=== PATIENT | female | born 1990 | race African-American/Black ===

== ENCOUNTER 2017-01-24 18:30 | Outpatient (CLI) | payer MEDICAID, SELFPAY ==
[2017-01-24 18:41] VITALS: BMI 28.3
[2017-01-24 18:58] LABS: Red Blood Cells-Urine 0 SEEN /hpf (0-5); White Blood Cells 0 SEEN /hpf (0-5)
[2017-01-24 19:09] LABS: Color, Urine Yellow (Yellow); Glucose, Dipstick Normal (Normal); Ketone-Dipstick 5 mg/dl (Negative); Leukocyte Esterase-Dipstick 25 /ul (Negative); Nitrite-Dipstick Negative (Negative); Occult Blood-Urine Negative /ul (Negative); Protein-Dipstick 15 mg/dl (Negative); Specific Gravity, Urine 1.015 (1.002-1.030); Urine Bilirubin Dipstick Negative (Negative); Urine Clarity Clear (Clear); Urine Urobilinogen 1 mg/dl (Normal)
[2017-01-24 19:17] LABS: Squamous Epithelial Cells - UA 0-5 SEEN /hpf (5-10)
[2017-01-24 19:18] LABS: Bacteria 1+ /hpf (None Seen); Mucous, Urine 1+ /hpf (<or=2+)
--- NOTE | 2017-01-25 09:58 | OB.TRI.NOTE ---
History of Present Illness - History of Present Illness Reason For Visit: VAG PAIN - Allergies Allergies/Adverse Reactions: Allergies No Known Allergies Allergy (Verified 01/24/17 18:59) - Pertinent Past Medical History Pertinent Past Medical History: 35+ week IUP presents with vaginal pain. Denies contractions. No other issues. Followed by MD in [place] but has not seen him since October. Physical Exam Abdomen: Appropriate for Gestational Age NST - FHR Rate Baby A NST Reactive:: Yes Impression/Plan 35+ week IUP with false labor. Cervix non-threatening for labor. Reactive NST. UA OK--to increase hydration. Strongly urged to keep appt with OB on Friday as planned.
--- NOTE | 2017-01-25 10:02 | OB.TRI.HP_ITS ---
History of Present Illness - History of Present Illness Reason For Visit: VAG PAIN - Allergies Allergies/Adverse Reactions: Allergies No Known Allergies Allergy (Verified 01/24/17 18:59) - Pertinent Past Medical History Pertinent Past Medical History: 35+ week IUP presents with vaginal pain. Denies contractions. No other issues. Followed by MD in [place] but has not seen him since October. Physical Exam Abdomen: Appropriate for Gestational Age NST - FHR Rate Baby A NST Reactive:: Yes Impression/Plan 35+ week IUP with false labor. Cervix non-threatening for labor. Reactive NST. UA OK--to increase hydration. Strongly urged to keep appt with OB on Friday as planned.
== END 2017-01-24 20:38 | disposition home or self-care (01) ==
PROVIDERS: Visit Provider Obstetrics & Gynecology
DX: O47.03 False labor before 37 completed weeks of gestation, third trimester (principal); O26.893 Other specified pregnancy related conditions, third trimester; Z3A.35 35 weeks gestation of pregnancy
CPT/HCPCS: 99218; 59025; 59050; 81001; G0378

== ENCOUNTER 2017-07-15 22:12 | Emergency (ER) | payer MEDICAID, SELFPAY ==
[2017-07-15 22:13] VITALS: BP 125/83; PULSE 65; RESP 16; TEMP 36.2; O2SAT 96; BMI 27.6
--- NOTE | 2017-07-15 22:39 | ED.DCSUM_ITS ---
- ER Visit Summary Date of Service: 07/15/17 Chief Complaint: [] Abdominal pain History of Present Illness: The patient is a 26 F she has chronic left lower abdominal pain on and off for last 2 months. It has been constant over the last 2 weeks. She was seen for this about a month ago and diagnosed with a left ovarian cyst after ultrasound and lab work. Her last menstrual period was the first of this month. She does not have any contraceptive. She states that she took some Aleve this morning with moderate relief. No other symptoms. She is also complaint of chronic left wrist pain that waxes and wanes for the last year. Comes in for further evaluation of this. Did not follow-up with an OB/ ADMINISTRATIVE CLERK. Has had a history of tubo-ovarian abscess and ectopic . She had a baby on April 18. She stated she is only had sex 3 times since which makes her uncomfortable. They will been with her partner. She denies any vaginal discharge. Physical Examination: [] Vital signs reviewed General: Well-nourished well-developed Head: Normocephalic atraumatic Eyes: Pupils equal round and reactive to light extraocular movements intact ENT: TMs clear no hemotympanum no trauma Neck: Nontender full range of motion Cardiovascular: Regular rate rhythm no murmurs normal S1-S2 Respiratory: No distress clear to auscultation bilaterally chest nontender Abdomen: Soft mild tenderness left lower adnexal region externally. No guarding or rebound. Nondistended normal bowel sounds no masses Back: Nontender no CVA tenderness Extremities: Nontender decreased range of motion left wrist secondary to discomfort. Normal color temperature and vascular exam Skin: Normal color no trauma Neuro alert oriented cranial nerves II through XII intact normal strength sensation reflexes Test Results: [] Emergency Department Course and Treatment: [] Given ibuprofen. At this time I think she sprained her left wrist. She has been picking up her which probably makes it worse. I do not think she needs imaging. I offered this to her and we decided to hold off. Urine studies were obtained. They are negative including . This time I think this is likely an ovarian cyst. A very low suspicion for STD. He just had a baby and is in a monogamous relationship with one person. Her left tube has been taken out remotely because of an ectopic. She will use NSAIDs and follow-up as an outpatient. Do not feel she needs another ultrasound she had one that showed a cyst last month. Treatment Plan: [] Disposition: [] Impression: [] Left adnexal pain suspected recurrent ovarian cyst Left wrist sprain This note was generated with [employer] dictation software. It may contain incorrect words, spelling, and punctuation that were not noted in review of the chart prior to signing ED Disposition - Plan for ED Patient: Chief Complaint: Abd Pain Referrals: Care Physician,No Primary [Primary Care Provider] -
[2017-07-15 22:43] LABS: Bacteria 0 SEEN /hpf (None Seen)
[2017-07-15 22:45] LABS: Color, Urine Yellow (Yellow); Glucose, Dipstick Normal (Normal); Ketone-Dipstick Negative (Negative); Leukocyte Esterase-Dipstick 25 /ul (Negative); Nitrite-Dipstick Negative (Negative); Occult Blood-Urine Negative /ul (Negative); Protein-Dipstick Negative (Negative); Specific Gravity, Urine 1.015 (1.002-1.030); Urine Bilirubin Dipstick Negative (Negative); Urine Clarity Sl. Cloudy (Clear); Urine Urobilinogen 1 mg/dl (Normal)
[2017-07-15 22:48] LABS: Internal QC Validated? YES +Cl - CLEAR BKGD; Pregnancy, Urine Negative Negative
[2017-07-15 23:06] LABS: Mucous, Urine 1+ /hpf (<or=2+)
[2017-07-15] MEDS: Ibuprofen 600 MG Tablet PO (23:06)
[2017-07-15 23:07] LABS: Squamous Epithelial Cells - UA 0-5 SEEN /hpf (5-10); White Blood Cells 0-5 SEEN /hpf (0-5)
[2017-07-15 23:08] LABS: Red Blood Cells-Urine 0-5 SEEN /hpf (0-5)
--- NOTE | 2017-07-15 23:16 | ED.DEP ---
ED Disposition - Plan for ED Patient: Disposition: Home or Assisted Living Chief Complaint: Abd Pain Instructions: ED Pelvic Pain UKO, ED Sprain Wrist Referrals: Care Physician,No Primary [Primary Care Provider] - Keo Griffith MD [STAFF PHYSICIAN] -
[2017-07-15 23:21] VITALS: BP 118/74; PULSE 61; RESP 16; O2SAT 97
== END 2017-07-15 23:25 | disposition home or self-care (01) ==
PROVIDERS: Emergency Provider Emergency Medicine
DX: R10.2 Pelvic and perineal pain (principal); S63.502A Unspecified sprain of left wrist, initial encounter; G89.29 Other chronic pain; X50.9XXA Other and unspecified overexertion or strenuous movements or postures, initial encounter; Y93.9 Activity, unspecified; Y92.9 Unspecified place or not applicable; Y99.9 Unspecified external cause status
CPT/HCPCS: 81001; 81025; 99283

== ENCOUNTER 2017-08-12 10:51 | Emergency (ER) | payer SELFPAY ==
[2017-08-12 10:52] VITALS: BP 136/98; PULSE 85; RESP 16; TEMP 36.6; O2SAT 99; BMI 26.2
--- NOTE | 2017-08-12 11:09 | RAD_ITS ---
STUDY: X-RAY CHEST REASON FOR EXAM: Female, 26 years old. Chest pains. TECHNIQUE: PA and lateral views of the chest. COMPARISON: None. FINDINGS: The lungs are clear and expanded. There is no demonstrated pleural abnormality. Normal size heart. Normal mediastinum and daniel. Normal visualized pulmonary arteries. Normal visualized aortic arch and descending thoracic aorta. Normal visualized thoracic spine. Normal visualized ribs, clavicles, and shoulders. There is no demonstrated abnormality of the visualized soft tissue structures of the upper abdomen. RAD/Chest PA and Lateral IMPRESSION: Normal x-ray examination of the chest. Electronically Signed: Blaine Lafleur MD at 12:37 EST Tel [phone], Service support ,
--- NOTE | 2017-08-12 11:09 | EKG12_ITS ---
Test Reason : Blood Pressure : / mmHG Vent. Rate : 052 BPM Atrial Rate : 052 BPM P-R Int : 132 ms QRS Dur : 080 ms QT Int : 420 ms P-R-T Axes : 052 049 039 degrees QTc Int : 390 ms Sinus bradycardia Otherwise normal ECG Confirmed by FATOU CAVAZOS, SID ([id number]), assistant production editor WILLY GUILLAUME ([id number] on 08/13/2017 2:25:01 PM Referred By: JOJO/OSMAR Confirmed By:SID LAINEZ MD
[2017-08-12 11:54] LABS: Absolute Lymphocyte Count 1.73 X10^3/ul (0.83-4.51); Absolute Neutrophil Count 2.4 X10^3/uL (2.0-7.7); Basophil# 0.03 X10^3/uL; Basophil% 0.6 % (0-1); Eosinophil# 0.15 X10^3/uL; Eosinophils% 3.2 % (0-5); Hematocrit 36.8 % (37-47); Hemoglobin 11.9 g/dl (12.0-15.0); Lymphocyte # 1.73 X10^3/ul (4.0); Lymphocyte % 37.2 % (19-41); Mean Corp Hgb Conc 32.3 g/gl (32-36); Mean Corpuscular Hgb 28.4 pg (27.0-32.0); Mean Corpuscular Volume 87.8 fL (81-99); Mean Platelet Vol. 10.3 fl (6.2-12.0); Monocyte# 0.35 X10^3/uL; Monocyte% 7.5 % (0-10); Neutrophil # 2.39 X10^3/uL (2.7-7.7); Neutrophil % 51.5 % (47-70); Platelet Count 158 K/mm3 (150-450); RBC Distribution Width CV 15.7 % (11.6-14.6); RBC Distribution Width SD 50.8 fl (35.1-43.9); Red Blood Count 4.19 M/mm3 (4.2-5.4); White Blood Count 4.7 K/mm3 (4.4-11.0)
[2017-08-12 11:56] LABS: POSITIVE COUNT NO; POSITIVE DIFFERENTIAL NO; POSITIVE MORPHOLOGY NO
[2017-08-12 12:08] LABS: ALB/GLOB Ratio 1.1 RATIO (0.9-2.4); AST(SGOT) 10 U/L (15-37); Alanine Aminotransfer ALT/SGPT 19 U/L (13-56); Albumin, Serum 3.9 g/dL (3.2-5.0); Alkaline Phosphatase 64 U/L (45-117); Anion Gap 6 (5-15); BUN 10 mg/dL (7-18); BUN/Creat Ratio 14.2 RATIO (10-20); Calcium,Total 8.5 mg/dL (8.5-10.1); Chloride 109 mmol/L (98-107); EST Glomerular Filtration Rate 107 mL/min (>60); Est Glom Filt Rate - Afr Amer 129 mL/min (>60); Estimated Creatinine Clearance 97.17 ml/min; Globulin 3.5 g/dL (2.2-4.2); Glucose 94 mg/dL (74-106); Lipase 109 U/L (73-393); Protein, Total 7.4 g/dL (6.4-8.2); Sodium Level 141 mmol/L (136-145)
[2017-08-12 12:18] LABS: D-Dimer Quantitative (DVT/PE) < 0.27 FEU/ug/m (0.27-0.49)
[2017-08-12 12:26] LABS: Mucous, Urine 0 SEEN /hpf (<or=2+); White Blood Cells 0 SEEN /hpf (0-5)
[2017-08-12 12:35] LABS: Color, Urine Yellow (Yellow); Glucose, Dipstick Normal (Normal); Ketone-Dipstick Negative (Negative); Leukocyte Esterase-Dipstick 25 /ul (Negative); Nitrite-Dipstick Negative (Negative); Occult Blood-Urine 10 /ul (Negative); Protein-Dipstick Negative (Negative); Specific Gravity, Urine 1.015 (1.002-1.030); Urine Bilirubin Dipstick Negative (Negative); Urine Clarity Clear (Clear); Urine Urobilinogen Normal (Normal); Urine pH 6.5 (5.0 - 8.0)
[2017-08-12 12:38] LABS: Internal QC Validated? YES +Cl - CLEAR BKGD
[2017-08-12 12:39] LABS: Pregnancy, Urine Negative Negative
[2017-08-12 13:04] LABS: Red Blood Cells-Urine 0-5 SEEN /hpf (0-5); Squamous Epithelial Cells - UA 10-25 SEEN /hpf (5-10)
[2017-08-12 13:05] LABS: Bacteria RARE /hpf (None Seen)
--- NOTE | 2017-08-12 13:18 | ED.DCSUM_ITS ---
- ER Visit Summary Date of Service: 08/12/17 Chief Complaint: Abdominal pain History of Present Illness: The patient is a 26 F who presents with abdominal pain. She has had left-sided abdominal pain for at least 4 months. She states she is also having some left lower chest pain and has some shortness of breath particularly with exertion or going up steps for the past year. She has been evaluated for this multiple times. She reports some occasional loose stools in the last few days but no nausea vomiting or fevers. She also complains of headaches. Her left-sided pain also sometimes radiates into her thigh. Physical Examination: Afebrile vitals are normal Moist mucous membranes Heart regular rate and rhythm Lungs are clear Abdomen soft she does have some reproducible left-sided abdominal pain. Alert and oriented with no focal or lateralizing neurological deficits Test Results: EKG shows normal sinus rhythm at a rate of 52. Two-view chest x- ray normal. Laboratory studies notable for hemoglobin 11.9. D-dimer is negative. Emergency Department Course and Treatment: Patient presents with chronic abdominal pain which she has been evaluated for multiple times in the past. She also complains of intermittent chest pain and shortness of breath with exertion for a year. She has normal x-ray and a negative d-dimer. I advised of the need for outpatient follow-up and she was given a referral for primary care physician. Treatment Plan: [] Disposition: Discharge Impression: Chronic abdominal pain Chest pain This note was generated with [employer] dictation software. It may contain incorrect words, spelling, and punctuation that were not noted in review of the chart prior to signing ED Disposition - Plan for ED Patient: Chief Complaint: General Illness Referrals: Care Physician,No Primary [Primary Care Provider] -
--- NOTE | 2017-08-12 13:23 | ED.DEP ---
ED Disposition - Plan for ED Patient: Chief Complaint: General Illness Instructions: ED Abdominal Pain Unkn Cause, ED Chest Pain NonCardiac Referrals: Care Physician,No Primary [Primary Care Provider] - Yoana Gutierrez DO [NON-STAFF] -
[2017-08-12 13:43] VITALS: BP 128/72; PULSE 82; RESP 16; O2SAT 99
== END 2017-08-12 13:44 | disposition home or self-care (01) ==
PROVIDERS: Emergency Provider Emergency Medicine
DX: R10.12 Left upper quadrant pain (principal); R10.32 Left lower quadrant pain; G89.29 Other chronic pain; R07.9 Chest pain, unspecified; R51 Headache; R19.7 Diarrhea, unspecified; R06.02 Shortness of breath; Z72.0 Tobacco use
CPT/HCPCS: 71046; 80053; 81001; 81025; 83690; 85025; 85379; 93005; 99283; A4216

== ENCOUNTER 2017-08-21 12:34 | Emergency (ER) | payer SELFPAY ==
[2017-08-21 12:35] VITALS: BP 109/54; PULSE 69; RESP 16; TEMP 36.9; O2SAT 100; BMI 26.9
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
[2017-08-21 13:43] VITALS: RESP 16
--- NOTE | 2017-08-21 13:44 | ED.RN ---
REVIEWED D/C INSTRUCTIONS, FOLLOW UP CARE, AND S/S THAT WOULD WARRANT A RETURN TO THE ED WITH PT. PT VERBALIZED AN UNDERSTANDING AND DENIES FURTHER QUESTIONS FOR THIS RN. PT SKIN WARM AND DRY, RESP EVEN AND UNLABORED, PT A&O X 3, NO DISTRESS NOTED. PT AMBULATED OUT OF ED, GAIT STEADY.
== END 2017-08-21 13:45 | disposition home or self-care (01) ==
PROVIDERS: Emergency Provider Emergency Medicine
DX: S40.011A Contusion of right shoulder, initial encounter (principal); S60.211A Contusion of right wrist, initial encounter; V03.00XA Pedestrian on foot injured in collision with car, pick-up truck or van in nontraffic accident, initial encounter; Y93.01 Activity, walking, marching and hiking; Y92.481 Parking lot as the place of occurrence of the external cause; Y99.9 Unspecified external cause status
CPT/HCPCS: 73060; 73090; 99283

== ENCOUNTER 2017-09-03 14:39 | Emergency (ER) | payer SELFPAY ==
[2017-09-03 14:41] VITALS: BP 138/77; PULSE 71; RESP 16; TEMP 36.4; O2SAT 98; BMI 28.0
--- NOTE | 2017-09-03 15:20 | ED.VISSUMM ---
- ER Visit Summary Date of Service: 09/03/17 Chief Complaint: Dysuria History of Present Illness: The patient is a 26 F 3 of multiple STDs, pulmonic stenosis. Ab1 with that being an ectopic that was treated surgically. Patient states that she has had dysuria for the last several days. Denies bleeding or discharge. She is concerned because her boyfriend reportedly cheated on her. She would like to be treated for gonorrhea and chlamydia. Physical Examination: Well appearing young female. Vital signs are stable afebrile. She does not look septic toxic. No acute distress. H EENT exam unremarkable. Lungs clear to auscultation bilaterally. Heart rate and rhythm no murmur. Abdomen is soft nondistended normal bowel sounds no peritoneal signs. She is moving all 4 extremities. Nontender no edema. Neurologically she is awake and alert without focal motor deficits. Test Results: Urinalysis is with a UTI with 50-100 white cells. It was contaminated with 10-25 epithelial cells with 2+ bacteria. She will be treated for UTI with Keflex 4 times daily for 7 days. She is also already been treated for possible STD with Rocephin and Zithromax. Emergency Department Course and Treatment: I am Rocephin and p.o. Zithromax. Treatment Plan: A urine culture was sent. Disposition: discharge Impression: Acute dysuria secondary to UTI Rule out STD This note was generated with [employer] dictation software. It may contain incorrect words, spelling, and punctuation that were not noted in review of the chart prior to signing ED Disposition - Plan for ED Patient: Chief Complaint: Female C/O Referrals: Care Physician,No Primary [Primary Care Provider] -
[2017-09-03 15:22] LABS: Color, Urine Yellow (Yellow); Glucose, Dipstick Normal (Normal); Ketone-Dipstick Negative (Negative); Leukocyte Esterase-Dipstick 500 /ul (Negative); Nitrite-Dipstick Negative (Negative); Occult Blood-Urine 25 /ul (Negative); Protein-Dipstick 15 mg/dl (Negative); Urine Bilirubin Dipstick Negative (Negative); Urine Clarity Cloudy (Clear); Urine Urobilinogen Normal (Normal)
[2017-09-03] MEDS: Azithromycin 250 MG Tablet 500 MG PO (15:28)
[2017-09-03 15:35] LABS: Bacteria 2+ /hpf (None Seen); Mucous, Urine 2+ /hpf (<or=2+); Red Blood Cells-Urine 0-5 SEEN /hpf (0-5); Squamous Epithelial Cells - UA 10-25 SEEN /hpf (5-10); White Blood Cells 50-100 SEEN /hpf (0-5)
[2017-09-03 15:36] LABS: Internal QC Validated? YES +Cl - CLEAR BKGD; Pregnancy, Urine Negative Negative
--- NOTE | 2017-09-03 16:13 | ED.DEP ---
ED Disposition - Plan for ED Patient: Disposition: Home or Assisted Living Chief Complaint: Female C/O Instructions: ED UTI Cystitis Female Prescriptions: Cephalexin [Keflex] 500 mg PO Q6 #30 cap Referrals: Elyssa Huber MD [STAFF PHYSICIAN] - 3-5 Days if not improving Additional Instructions: Drink plenty of water and cranberry juice to help you with you to 9. Keflex 1 pill 4 times a day for a week. Call and follow-up with the physician referred to to obtain a CHILD WELFARE ASSISTANT physician.
--- NOTE | 2017-09-03 16:16 | DCINST.ED_ITS ---
ED Disposition - Plan for ED Patient: Disposition: Home or Assisted Living Chief Complaint: Female C/O Instructions: ED UTI Cystitis Female Prescriptions: Cephalexin [Keflex] 500 mg PO Q6 #30 cap Referrals: Elyssa Huber MD [STAFF PHYSICIAN] - 3-5 Days if not improving Additional Instructions: Drink plenty of water and cranberry juice to help you with you to 9. Keflex 1 pill 4 times a day for a week. Call and follow-up with the physician referred to to obtain a FABRIC WORKER SUPERVISOR physician.
== END 2017-09-03 16:23 | disposition home or self-care (01) ==
PROVIDERS: Emergency Provider Emergency Medicine
DX: N30.90 Cystitis, unspecified without hematuria (principal); R19.7 Diarrhea, unspecified; Z72.0 Tobacco use; Z86.2 Personal history of diseases of the blood and blood-forming organs and certain disorders involving the immune mechanism
CPT/HCPCS: 81001; 81025; 96372; 99283

== ENCOUNTER 2019-10-02 16:09 | Emergency (ER) | payer MEDICAID, SELFPAY ==
[2019-10-02 16:09] VITALS: BP 109/70; PULSE 72; RESP 16; TEMP 36.3; O2SAT 100; BMI 26.4
--- NOTE | 2019-10-02 16:20 | ED.DCSUM_ITS ---
History of Present Illness Chief Complaint: Female C/O Narrative: 28-year-old female presents requesting treatment for STDs. She was with someone who apparently tested positive for chlamydia and possibly gonorrhea. She would like the shot of Rocephin and Zithromax pills. She has taken them before for STDs and does well with them. She is certain that she has it. She has slight burning but denies discharge. Denies abdominal pain or fever. No localized pelvic pain. Onset of symptoms has been gradual. Severity is mild. Past Medical History - Allergies and Home Meds Allergies/Adverse Reactions: Allergies No Known Allergies Allergy (Verified 07/15/17 22:15) Primary Care Physician: Care Physician,No Primary [Primary Care Provider] - Smoking Status: Current every day smoker Review of Systems General: Denies: Chills, Fever, Sweats Eyes: Denies: Visual changes - bilaterally, Diplopia ENT: Denies: Rhinorrhea, Sore throat Cardiovascular: Denies: Chest pain, Palpitations Respiratory: Denies: Dyspnea, Cough, Dyspnea on exertion Gastrointestinal: Denies: Abdominal pain, Nausea, Vomiting, Diarrhea, Melena, Hematochezia Genitourinary: Reports: Dysuria. Denies: Hematuria, Frequency Musculoskeletal: Denies: Back pain, Extremity Pain Skin: Denies: Rash, Wounds Neurological: Denies: Headache, Weakness, Numbness Physical Exam Vital Signs/Narrative: Vital Signs Temp Pulse Resp BP Pulse Ox 10/02/19 16:09 97.4 F L 72 16 109/70 100 General: Well nourished, Well developed, No Acute Distress Head: Normocephalic, Atraumatic Eyes: Perrl, EOMI ENT: Moist mucous membranes, No rhinorrhea Neck: Supple, Nontender Cardiovascular: Regular rate, Regular rhythm, No murmurs Respiratory: No distress, CTA bilaterally, Chest nontender Abdomen: Soft, Nontender, Nondistended, Normal bowel sounds Back: Nontender, Normal Inspection Extremities: Nontender, No edema Skin: Normal color, No rash Neurological: Alert, Oriented x3, Cranial nerves II-XII grossly intact, Normal Strength, Normal Sensation Psychological: Normal affect, Normal Mood Diagnostic/Tx/Re-eval - Medical Decision Making She just wants to be treated and states that she will follow-up with FUNERAL PLANNING COUNSELOR. She is certain that she has an STD. ED Disposition - Plan for ED Patient: Disposition: Home or Assisted Living Diagnosis: STD (sexually transmitted disease) Instructions: ED Cervicitis STD Treated Referrals: Care Physician,No Primary [Primary Care Provider] -
[2019-10-02] MEDS: Azithromycin 250 MG Tablet 1000 MG PO (17:40)
[2019-10-02] MEDS: Ceftriaxone 500 MG Vial 250 MG IM (17:41)
[2019-10-02 18:25] LABS: Neisserai gonorrhoeae by PCR Negative (Negative); Probe Check PASS
[2019-10-02 18:27] LABS: Chlamydia Trachomatis by PCR POSITIVE (Negative)
== END 2019-10-02 17:45 | disposition home or self-care (01) ==
PROVIDERS: Emergency Provider Emergency Medicine
DX: A64 Unspecified sexually transmitted disease (principal); F17.200 Nicotine dependence, unspecified, uncomplicated
CPT/HCPCS: 87491; 87591; 96372; 99282